=== PATIENT | male | born 1985 | race Caucasian/White ===

== ENCOUNTER 2021-02-08 14:43 | Emergency (ER) | payer MEDICAID, OTHER ==
[~2021-02-08] VITALS: Ht 172.7 cm; Wt 81.8 kg
[2021-02-08] MEDS ORDERED: LORazepam 2 mg/ml vial IV ONE (15:00)
[2021-02-08] MEDS ORDERED: methylPREDNISolone sod succ 125mg/2ml vial IV ONE (15:00)
[2021-02-08] MEDS ORDERED: normal saline 1000ml 1,000 ML IV ONE (15:15)
[2021-02-08 15:35] VITALS: BP 146/98
[2021-02-08] MEDS ORDERED: PRED20TA PO (15:55)
== END 2021-02-08 16:05 | disposition home or self-care (01) ==
LOC: ER 14:43
DX: T63.441A Toxic effect of venom of bees, accidental (unintentional), initial encounter (principal); Z72.89 Other problems related to lifestyle; Z88.8 Allergy status to other drugs, medicaments and biological substances; Z88.0 Allergy status to penicillin; Z79.899 Other long term (current) drug therapy; Y92.89 Other specified places as the place of occurrence of the external cause
CPT/HCPCS: 96361; 96374; 96375; 99284; J2060; J2930; J7030

== ENCOUNTER 2024-07-05 16:13 | Emergency (ER) | payer BC, OTHER ==
[~2024-07-05] VITALS: Ht 172.7 cm; Wt 85.8 kg
[2024-07-05 16:32] VITALS: TEMP 98.5
[2024-07-05 17:01] LABS: BASOPHILS % (AUTO) 0.6 % (0-1); EOSINOPHILS # (AUTO) 0.2 X10'3 (0-0.9); HEMATOCRIT 44.6 % (42.0-52.0); HEMOGLOBIN 15.3 g/dl (14.0-17.9); LYMPHOCYTES # (AUTO) 2.4 X10'3 (1.1-4.8); LYMPHOCYTES % (AUTO) 30.9 % (21-51); MEAN CORPUSCULAR HEMOGLOBIN 30.4 PG (27.0-31.0); MEAN CORPUSCULAR HGB CONC 34.4 g/dL (33.0-36.5); MEAN CORPUSCULAR VOLUME 88.4 FL (78-98); MEAN PLATELET VOLUME 7.9 FL (7.4-10.4); MONOCYTES # (AUTO) 0.6 X10'3 (0-0.9); MONOCYTES % (AUTO) 7.7 % (2-12); NEUTROPHILS # (AUTO) 4.5 X10'3 (1.8-7.7); NEUTROPHILS % (AUTO) 58.8 % (42-75); PLATELET COUNT 275 X10'3 (140-440); RED BLOOD COUNT 5.04 X10'6 (4.70-6.10); RED CELL DISTRIBUTION WIDTH 12.6 % (11.5-14.5); WHITE BLOOD COUNT 7.6 X10'3 (4.5-11.0)
[2024-07-05 17:21] LABS: ALANINE AMINOTRANSFERASE 24 U/L (12-78); ALBUMIN 4.3 G/DL (3.4-5.0); ALBUMIN/GLOBULIN RATIO 1.1 (1.1-1.5); ALKALINE PHOSPHATASE 69 IU/L (46-116); ANION GAP 8 (8-16); ASPARTATE AMINO TRANSFERASE 14 U/L (10-37); BILIRUBIN,TOTAL 0.5 MG/DL (0.1-1.0); BLOOD UREA NITROGEN 21 MG/DL (7-18); BUN/CREATININE RATIO 23.6 (10.0-20.0); CALCIUM 9.1 MG/DL (8.5-10.1); CHLORIDE 106 MMOL/L (99-107); CREATININE 0.89 MG/DL (0.60-1.10); GLUCOSE 96 MG/DL (70-104); LIPASE 60 U/L (16-77); SODIUM 140 MMOL/L (135-145); TOTAL CARBON DIOXIDE 26.5 MMOL/L (24-32); TOTAL PROTEIN 8.1 G/DL (6.4-8.2); eCRCL 108 ML/MIN; eGFR > 90 ML/MIN
[2024-07-05 19:28] LABS: BILIRUBIN,URINE NEGATIVE (Neg); CLARITY,URINE CLEAR (Clear); COLOR,URINE YELLOW (Yellow); GLUCOSE, URINE NEGATIVE (Neg); KETONES,URINE NEGATIVE (Neg); LEUKOCYTE ESTERASE ,URINE NEGATIVE (Neg); NITRITES, URINE NEGATIVE (Neg); OCCULT BLOOD,URINE NEGATIVE (Neg); PROTEIN,URINE NEGATIVE (Neg); UROBILINOGEN,URINE 0.2 E.U/dL (0.2-1.0)
[2024-07-05 19:33] LABS: UA COLLECTION TYPE NON-SPECIFIED
[2024-07-05 21:30] VITALS: BP 130/86; PULSE 63; O2SAT 100
[2024-07-05] MEDS: dicyclomine 10 MG capsule PO ONE (21:50)
[2024-07-05] MEDS: ondansetron 4mg rapidly disintigrating tab PO ONE (21:50)
[2024-07-05] MEDS: ketorolac trometh 30MG/ML vial 30 MG/ML VIAL IM ONE (21:52)
[2024-07-05] MEDS ORDERED: ONDA-243 PO (22:02)
[2024-07-05] MEDS ORDERED: HYDR-3965 PO (22:02)
[2024-07-05] MEDS ORDERED: DICY20TA17 PO (22:02)
== END 2024-07-05 22:23 | disposition home or self-care (01) ==
LOC: ER 16:13
DX: R10.9 Unspecified abdominal pain (principal); Z88.0 Allergy status to penicillin; Z88.8 Allergy status to other drugs, medicaments and biological substances
CPT/HCPCS: 36415; 74176; 80053; 81003; 83690; 85025; 99284; J1885